=== PATIENT | female | born 1955 | race Caucasian/White ===

== ENCOUNTER 2023-12-12 11:43 | Day surgery (SDC) | payer MEDICARE, BC ==
[~2023-12-12] VITALS: Ht 162.6 cm; Wt 60.7 kg
[2023-12-12] MEDS ORDERED: NO HOME MEDS (12:00)
[2023-12-12 12:30] VITALS: BP 157/78; PULSE 76; RESP 14; TEMP 98.4; O2SAT 97
[2023-12-12 12:48] LABS: ALBUMIN 3.9 G/DL (3.4-5.0); ANION GAP 12 (8-16); BLOOD UREA NITROGEN 16 MG/DL (7-18); BUN/CREATININE RATIO 22.5 (10.0-20.0); CALCIUM 9.7 MG/DL (8.5-10.1); CHLORIDE 104 MMOL/L (99-107); CREATININE 0.71 MG/DL (0.40-0.90); POTASSIUM 4.2 MMOL/L (3.5-5.1); SODIUM 140 MMOL/L (135-145); TOTAL CARBON DIOXIDE 24.1 MMOL/L (24-32); eCRCL 64 ML/MIN; eGFR 81 ML/MIN
[2023-12-12 12:50] LABS: APTT 31 SECONDS (22-32)
[2023-12-12 12:54] LABS: INR 0.9 INR
[2023-12-12 12:55] LABS: GLUCOSE 69 MG/DL (70-104)
[2023-12-12 13:01] LABS: BASOPHILS % (AUTO) 0.4 % (0-1); EOSINOPHILS # (AUTO) 0.1 X10'3 (0-0.9); HEMATOCRIT 44.9 % (35.0-45.0); HEMOGLOBIN 15.1 g/dl (12.0-16.0); LYMPHOCYTES # (AUTO) 2.7 X10'3 (1.1-4.8); LYMPHOCYTES % (AUTO) 27.3 % (21-51); MEAN CORPUSCULAR HGB CONC 33.6 g/dL (33.0-36.5); MEAN CORPUSCULAR VOLUME 92.2 FL (78-98); MEAN PLATELET VOLUME 8.9 FL (7.4-10.4); MONOCYTES # (AUTO) 0.9 X10'3 (0-0.9); MONOCYTES % (AUTO) 9.3 % (2-12); NEUTROPHILS # (AUTO) 6.2 X10'3 (1.8-7.7); PLATELET COUNT 226 X10'3 (140-440); RED BLOOD COUNT 4.87 X10'6 (4.20-5.60); RED CELL DISTRIBUTION WIDTH 13.9 % (11.5-14.5)
[2023-12-12 14:30] VITALS: BP 190/99; PULSE 76; RESP 14; O2SAT 98
[2023-12-12 14:45] VITALS: BP 188/97; PULSE 78; RESP 14; O2SAT 98
[2023-12-12 15:00] VITALS: BP 160/92; PULSE 75; RESP 14; O2SAT 98
== END 2023-12-12 15:05 | disposition home or self-care (01) ==
LOC: SSTAY O 11:43
PROVIDERS: ATTEND Radiology Vascular & Interventional Radiology
DX: N28.1 Cyst of kidney, acquired (principal); F12.90 Cannabis use, unspecified, uncomplicated; Z72.89 Other problems related to lifestyle; Z79.01 Long term (current) use of anticoagulants
CPT/HCPCS: 36415; 49405; 76942; 80048; 85025; 85610; 85730